=== PATIENT | male | born 1995 | race Caucasian/White ===

== ENCOUNTER 2020-11-18 22:53 | Inpatient (IN) | payer BC ==
[~2020-11-18] VITALS: Ht 177.8 cm; Wt 78.9 kg
[2020-11-18 23:47] LABS: BASOPHILS ABSOLUTE AUTO 0.08 K/mm3 (0.00-0.23); BASOPHILS PERCENT AUTO 1 % (0-2); EOSINOPHILS ABSOLUTE AUTO 0.19 K/mm3 (0.00-0.68); EOSINOPHILS PERCENT AUTO 2 % (0-6); Hematocrit 46.5 % (37.0-53.0); Hemoglobin 15.6 g/dL (13.5-17.5); IMMATURE GRAN ABSOLUTE AUTO 0.07 K/mm3 (0.00-0.10); IMMATURE GRAN PERCENT AUTO 1 % (0-1); LYMPHOCYTES PERCENT AUTO 39 % (21-46); MONOCYTES ABSOLUTE AUTO 0.79 K/mm3 (0.16-1.47); MONOCYTES PERCENT AUTO 8 % (4-13); Mean Corpuscular HGB 28.9 pg (26.0-34.0); Mean Corpuscular HGB Conc 33.5 g/dL (31.5-36.5); Mean Corpuscular Volume 86 fL (80-100); Mean Platelet Volume 10.1 fL (9.1-12.4); NEUTROPHILS ABSOLUTE AUTO 5.11 K/mm3 (1.96-9.15); NEUTROPHILS PERCENT AUTO 50 % (41-73); Platelet Count 264 K/mm3 (150-400); RDW Coefficient Variation 12.2 % (11.7-14.2); RDW Standard Deviation 38.5 fL (35.1-46.3); White Blood Cell Count 10.24 K/mm3 (4.00-11.30)
[2020-11-19 00:01] LABS: International Normalized Ratio 1.02; Prothrombin Time Results 10.9 Sec (9.7-11.5)
[2020-11-19 00:17] LABS: Alanine Aminotransfer (ALT/SGP 27 U/L (12-78); Albumin, Blood 4.3 g/dL (3.4-5.0); Albumin/Globulin Ratio 1.3 (0.8-1.8); Alk Phos 55 U/L (50-136); Anion Gap 8 mmol/L (6-16); Aspartate Aminotrans (AST/SGOT 13 U/L (12-37); Bilirubin, Total 0.3 mg/dL (0.1-1.0); Blood Urea Nitrogen 12 mg/dL (8-24); Bun/Creatinine Ratio 16.1 (12.0-20.0); CO2, Blood 24 mmol/L (21-32); Calcium, Blood 8.6 mg/dL (8.5-10.1); Chloride, Blood 108 mmol/L (98-108); Creatinine, Blood 0.75 mg/dL (0.60-1.20); Globulin, Blood 3.2 g/dL (2.2-4.0); Glomerular Filtration Rate >60 (60-); Glucose, Blood 118 mg/dL (70-99); Potassium, Blood 3.9 mmol/L (3.5-5.5); Sodium, Blood 140 mmol/L (136-145); Total Protein, Blood 7.5 g/dL (6.4-8.2)
[2020-11-19 00:23] LABS: Ethanol (Alcohol), Blood, Med 367 mg/dL
[2020-11-19 03:07] LABS: Influenza A, PCR NEGATIVE (NEGATIVE); Influenza B, PCR NEGATIVE (NEGATIVE); Resp Syncytial Virus, PCR NEGATIVE (NEGATIVE); SARS-Cov-2 (COVID-19) PCR, MMC NEGATIVE (NEGATIVE)
--- NOTE | 2020-11-19 07:07 | NUR ---
ADMITTED TO RM #[id number] PLANS FOR OR TODAY. DILAUDID EFFECTIVE FOR PAIN CONTROL. SPLINT AND DSNG D/I LLE TOES MOBILE, WARM WITH BRISK REFILL.
--- NOTE | 2020-11-19 09:14 | NUR ---
PT TAKEN TO DAY SURGER. PT'S FATHER WAS UPDATED PER PT REQUEST.
--- NOTE | 2020-11-19 10:08 | NUR ---
11/19/20 1007 Trixie Mclean PT ON SCHEDULED ANTIBIOTICS AND RECIEVED PRIOR TO ARRIVAL TO OR.
--- NOTE | 2020-11-19 13:11 | NUR ---
PT ARRIVED TO THE ROOM AT APPROXIMATELY 1250. PT IS ALERT AND ORIENTED. HE IS COMPLAINING OF 7/10 PAIN BUT REMAINS STOIC. BP IS ELEVATED. LLE IS WRAPPED WITH KATY WRAP AND DRESSING IS C/D/I. WILL CONTINUE TO MONITOR.
[2020-11-19 16:01] LABS: U Amphetamine Screen Not Detected; U Barbituate Screen Not Detected; U Benzodiazapine Screen Not Detected; U Buprenorphine Screen Not Detected; U Cannabinoids Screen DETECTED; U Cocaine Screen Not Detected; U Methadone Screen Not Detected; U Methamphetamine Screen Not Detected; U Opiates Screen DETECTED; U Oxycodone Screen Not Detected; U Phencyclidine Screen Not Detected; U Propoxyphene Screen Not Detected
[2020-11-19 17:19] LABS: Source, Urine Clean Catch
[2020-11-19 17:25] LABS: Appearance, Urine Clear (Clear); Bilirubin, Urine Neg (Neg); Blood, Urine 1+ (Neg); Color, Urine Yellow (P-Yellow); Glucose Qualitative, Urine Neg (Neg); Ketones, Urine 2+ (Neg); Leukocyte Esterase, Urine Neg (Neg); Nitrite, Urine Neg (Neg); Protein, Urine 2+ (Neg); Specific Gravity, Urine 1.025 (1.003-1.022); Urobilinogen, Urine NORM (Normal)
[2020-11-19 17:31] LABS: Bacteria Few /hpf; Mucus Light (0-Heavy); Red Blood Cells, Urine 0-2 /hpf (0-2); Squamous Epithelial Cells Few /hpf (Few)
[2020-11-19 17:32] LABS: Amorphous Light (0-Heavy); Hyaline Casts 0-2 /lpf (0-2)
--- NOTE | 2020-11-19 19:30 | NUR ---
SHIFT SUMMARY PT IS POD#0. PAIN HAS BEEN MANAGED WITH PO PAIN MEDCIATIONS. PT IS TOLERATING PO. BP IS ELEVATED BUT VSS. DR. SPENCE SPLINTING L HAND. REPORT GIVEN TO SAMUEL TORRES.
--- NOTE | 2020-11-20 11:48 | NUR ---
DR NOEL HERE EARLIER TODAY.
--- NOTE | 2020-11-20 12:05 | NUR ---
DR SPENCE HERE RECENTLY AND CHANGED SPLINT. REPORTS PT MAY D/C HOME TODAY. REPORTS TO HOLD LOVENOX. SCRIPT FOR PAIN MED AND WALKER ON CHART.
[2020-11-20] MEDS ORDERED: OXYC5 PO (14:38)
--- NOTE | 2020-11-20 16:53 | NUR ---
PT IV'S OUT AFTER ABX FINISHED. PT REQ TO HAVE PAIN PILLS APPROX 5 PM PT'S DAD TO BE HERE TO ELECTRICAL INTERN PT, PT BEING DISCHAGED TODAY. PT BEEN CLEARED BY THERAPY TO GO HOME. DR SPENCE AND DR NOEL REPORT PT MAY DISCHARGE TODAY. PT EATING AND DRINKING, VOIDING, PASSING GAS. PT REPORTS PAIN CONTROLLED ON PO PAIN MEDICATION AND PT CLEARED THERAPY TO GO HOME. PT'S DAD HERE EARLIER FOR PRESCRIPTIONS FOR PAIN MEDICATION AND WALKER WITH PLATFORM FOR ARM.
--- NOTE | 2020-11-20 17:50 | NUR ---
DISCHARGE: PT EATING AND DRINKING, VOIDING, PASSING GAS. PT BEEN CLEARED BY THERAPY AND ANTHONY TO GO HOME. FAMILY WHO IS GIVING PT RIDE HOME REPORTS HAVING MEDICATION AND WALKER WITH ARM PLATFORM. PT REPORT PAIN CONTROLLED ON PO PAIN MEDICATION. PT REQ TO WALK PART OF WAY IN HALLWAY, THEN TO W/C FOR REST OF RIDE TO THE CAR. PT GIVEN EXTRA DRESSING SUPPLIES, AND PT'S BELONGINGS. PT/FAMILY REPORTS UNDERSTANDING OF DISCHARGE INSTRUCTIONS. PT REPORTS WILL ICE AND ELEVATE IT WHEN HE GETS HOME.
== END 2020-11-20 18:16 | disposition home or self-care (01) | DRG 494 ==
LOC: ER 22:53 → SURS 11-19 00:49 → ER 11-19 00:49 → SURS 11-19 01:10
PROVIDERS: Emergency Medicine; Orthopaedic Surgery; ADMIT Surgery
PROC: 0HQ1XZZ Repair Face Skin, External Approach (ICD-10-PCS; 2020-11-18)
PROC: 0HQLXZZ Repair Left Lower Leg Skin, External Approach (ICD-10-PCS; 2020-11-18)
PROC: 0QSH04Z Reposition Left Tibia with Internal Fixation Device, Open Approach (ICD-10-PCS; principal; 2020-11-19 08:30)
DX: S82.102B Unspecified fracture of upper end of left tibia, initial encounter for open fracture type I or II (principal); S60.222A Contusion of left hand, initial encounter; S62.307A Unspecified fracture of fifth metacarpal bone, left hand, initial encounter for closed fracture; S09.90XA Unspecified injury of head, initial encounter; W22.8XXA Striking against or struck by other objects, initial encounter; F10.129 Alcohol abuse with intoxication, unspecified; S01.112A Laceration without foreign body of left eyelid and periocular area, initial encounter
CPT/HCPCS: 0241U; 11010; 12013; 36415; 70450; 71045; 71260; 72125; 73130; 73560-LT; 74177; 80053; 81001; 83690; 85025; 85610; 86850; 86900; 86901; 90471; 90714; 94762; 96365-59; 96366-59; 96375; 96375-59; 96376; 97116; 97161; 97530; 99285-25; A9270; C1713; C1769; G0480; J0690; J1100; J1170; J1885; J2250; J2370; J2405; J2704; J3010; J7030; Q9967

== ENCOUNTER 2020-12-18 10:38 | Emergency (ER) | payer BC ==
[~2020-12-18] VITALS: Ht 177.8 cm; Wt 74.8 kg
[~2020-12-18 10:38] MED LIST: OXYC5 PO
[2020-12-18 11:00] LABS: Source, Urine Clean Catch
[2020-12-18 11:03] LABS: Appearance, Urine Clear (Clear); Bilirubin, Urine Neg (Neg); Blood, Urine 5+ (Neg); Color, Urine Yellow (P-Yellow); Glucose Qualitative, Urine Neg (Neg); Ketones, Urine Neg (Neg); Leukocyte Esterase, Urine Neg (Neg); Nitrite, Urine Neg (Neg); Protein, Urine 1+ (Neg); Specific Gravity, Urine 1.025 (1.003-1.022); Urobilinogen, Urine NORM (Normal)
[2020-12-18 11:04] LABS: BASOPHILS ABSOLUTE AUTO 0.04 K/mm3 (0.00-0.23); BASOPHILS PERCENT AUTO 1 % (0-2); EOSINOPHILS ABSOLUTE AUTO 0.14 K/mm3 (0.00-0.68); EOSINOPHILS PERCENT AUTO 3 % (0-6); Hematocrit 41.5 % (37.0-53.0); Hemoglobin 13.8 g/dL (13.5-17.5); IMMATURE GRAN ABSOLUTE AUTO 0.03 K/mm3 (0.00-0.10); IMMATURE GRAN PERCENT AUTO 1 % (0-1); LYMPHOCYTES ABSOLUTE AUTO 1.14 K/mm3 (0.84-5.20); LYMPHOCYTES PERCENT AUTO 22 % (21-46); MONOCYTES ABSOLUTE AUTO 0.47 K/mm3 (0.16-1.47); MONOCYTES PERCENT AUTO 9 % (4-13); Mean Corpuscular HGB 28.2 pg (26.0-34.0); Mean Corpuscular HGB Conc 33.3 g/dL (31.5-36.5); Mean Corpuscular Volume 85 fL (80-100); NEUTROPHILS ABSOLUTE AUTO 3.43 K/mm3 (1.96-9.15); NEUTROPHILS PERCENT AUTO 65 % (41-73); Platelet Count 209 K/mm3 (150-400); RDW Coefficient Variation 12.5 % (11.7-14.2); RDW Standard Deviation 38.4 fL (35.1-46.3); White Blood Cell Count 5.25 K/mm3 (4.00-11.30)
[2020-12-18] MEDS ORDERED: TRAM50 PO (11:24)
[2020-12-18 11:26] LABS: Alanine Aminotransfer (ALT/SGP 24 U/L (12-78); Albumin, Blood 4.2 g/dL (3.4-5.0); Albumin/Globulin Ratio 1.2 (0.8-1.8); Alk Phos 111 U/L (50-136); Anion Gap 6 mmol/L (6-16); Aspartate Aminotrans (AST/SGOT 10 U/L (12-37); Bilirubin, Total 0.7 mg/dL (0.1-1.0); Blood Urea Nitrogen 20 mg/dL (8-24); Bun/Creatinine Ratio 27.4 (12.0-20.0); CO2, Blood 27 mmol/L (21-32); Chloride, Blood 108 mmol/L (98-108); Creatinine, Blood 0.73 mg/dL (0.60-1.20); Globulin, Blood 3.4 g/dL (2.2-4.0); Glomerular Filtration Rate >60 (60-); Glucose, Blood 102 mg/dL (70-99); Potassium, Blood 3.9 mmol/L (3.5-5.5); Sodium, Blood 141 mmol/L (136-145); Total Protein, Blood 7.6 g/dL (6.4-8.2)
[2020-12-18 11:58] LABS: Red Blood Cells, Urine TNTC /hpf (0-2)
[2020-12-18 11:59] LABS: Bacteria Mod /hpf; Mucus Light (0-Heavy); Squamous Epithelial Cells Not Seen /hpf (Few); White Blood Cells, Urine 0-2 /hpf (0-5)
[2020-12-18] MEDS ORDERED: Percocet 5-3251 EACH PO (12:32)
[2020-12-18] MEDS ORDERED: IBUP400 PO (12:32)
[2020-12-18] MEDS ORDERED: ONDA4ODT SL (12:32)
== END 2020-12-18 13:07 | disposition home or self-care (01) ==
LOC: ER 10:38
PROVIDERS: Emergency Medicine
DX: N13.2 Hydronephrosis with renal and ureteral calculous obstruction (principal); Z98.890 Other specified postprocedural states
CPT/HCPCS: 36415; 71260; 74177; 80053; 81001; 83690; 85025; 87086; 96374-59; 96375-59; 99284-25; J1170; J1885; J2405; Q9967

== ENCOUNTER 2021-11-14 12:12 | Day surgery (SDC) | payer OTHER ==
[~2021-11-14] VITALS: Ht 177.8 cm; Wt 81.1 kg
[~2021-11-14 12:12] MED LIST changes: +IBUP400 PO; +ONDA4ODT SL; +Percocet 5-3251 EACH PO; +TRAM50 PO
--- NOTE | 2021-11-14 15:15 | NUR ---
11/14/21 1515 Aubree Frazier 3OCC 0.5% MARCAINE VERIFIED MIXED WITH 0.15CC EPI=0.5% MARCAINE WITH EPI 1:200,000.
== END 2021-11-14 16:45 | disposition home or self-care (01) ==
LOC: ORSCSDS 12:12
PROVIDERS: Orthopaedic Surgery
PROC: 0QPH04Z Removal of Internal Fixation Device from Left Tibia, Open Approach (ICD-10-PCS; principal; 2021-11-14 13:45)
DX: T84.9XXA Unspecified complication of internal orthopedic prosthetic device, implant and graft, initial encounter (principal)
CPT/HCPCS: A9270; J0171; J0690; J1100; J1885; J2250; J2405; J2704; J3010

== ENCOUNTER 2025-01-09 17:48 | Emergency (ER) | payer OTHER ==
[~2025-01-09] VITALS: Ht 177.8 cm; Wt 77.1 kg
[2025-01-09 18:47] LABS: BASOPHILS ABSOLUTE AUTO 0.03 K/mm3 (0.00-0.23); BASOPHILS PERCENT AUTO 0 % (0-2); EOSINOPHILS ABSOLUTE AUTO 0.04 K/mm3 (0.00-0.68); EOSINOPHILS PERCENT AUTO 1 % (0-6); Hematocrit 49.2 % (37.0-53.0); Hemoglobin 16.4 g/dL (13.5-17.5); IMMATURE GRAN ABSOLUTE AUTO 0.02 K/mm3 (0.00-0.10); IMMATURE GRAN PERCENT AUTO 0 % (0-1); LYMPHOCYTES ABSOLUTE AUTO 1.21 K/mm3 (0.84-5.20); LYMPHOCYTES PERCENT AUTO 16 % (21-46); MONOCYTES ABSOLUTE AUTO 0.91 K/mm3 (0.16-1.47); MONOCYTES PERCENT AUTO 12 % (4-13); Mean Corpuscular HGB 28.8 pg (26.0-34.0); Mean Corpuscular HGB Conc 33.3 g/dL (31.5-36.5); Mean Corpuscular Volume 86 fL (80-100); Mean Platelet Volume 9.9 fL (9.1-12.4); NEUTROPHILS ABSOLUTE AUTO 5.18 K/mm3 (1.96-9.15); NEUTROPHILS PERCENT AUTO 70 % (41-73); Platelet Count 173 K/mm3 (150-400); RDW Coefficient Variation 12.3 % (11.7-14.2); RDW Standard Deviation 38.8 fL (35.1-46.3); White Blood Cell Count 7.39 K/mm3 (4.00-11.30)
[2025-01-09 19:05] LABS: Albumin, Blood 4.4 g/dL (3.4-5.0); Albumin/Globulin Ratio 1.2 (0.8-1.8); Bilirubin, Total 0.9 mg/dL (0.1-1.0); Bun/Creatinine Ratio 23.8 (12.0-20.0); Calcium, Blood 9.2 mg/dL (8.5-10.1); Creatinine, Blood 0.88 mg/dL (0.60-1.20); Globulin, Blood 3.6 g/dL (2.2-4.0); Potassium, Blood 3.8 mmol/L (3.5-5.5)
[2025-01-09 21:07] VITALS: BP 157/101
[2025-01-09] MEDS ORDERED: ONDA4ODT MM (22:12)
== END 2025-01-09 23:15 | disposition home or self-care (01) ==
LOC: ER 17:48
PROVIDERS: Student in an Organized Health Care Education/Training Program
DX: R19.7 Diarrhea, unspecified (principal); Z91.09 Other allergy status, other than to drugs and biological substances
CPT/HCPCS: 80053; 85025; 99284